=== PATIENT | female | born 1990 | race Caucasian/White ===

== ENCOUNTER 2025-02-12 09:00 | Emergency (ER) | payer BC, SELFPAY ==
[2025-02-12 09:04] VITALS: BP 116/64
--- NOTE | 2025-02-12 09:48 | ED.GENMED ---
History of Present Illness
General
Chief Complaint: Urinary Symptoms
Time Seen by Provider: 02/12/25 09:27
History of Present Illness
History of Present Illness:
34-year-old female presents to the emergency department for evaluation of urinary retention. She states over the past several days she feels that she cannot empty her bladder at night but it seems to improve throughout the day. Today she awoke
with intense bladder discomfort and was unable to void. She is currently 12 weeks gestational age, third . She notes that this did happen in mild fashion in her first but she never required emergency department visit or
catheterization for it. No issues like this with her second . Denies hematuria or vaginal discharge.
Past History
Social History
Personal: Single
Living: with family
Review of Systems
Review of Systems
Allergies reviewed?: Yes
All Other Systems: ROS reviewed and negative except as documented in HPI and ROS
Phy Exam
Physical Exam
Physical Exam:
GEN: Well appearing, NAD, WDWN
HEENT: Oral mucosa moist, no scleral icterus
Cardiac: Regular rate
Lung: No respiratory distress, no tachypnea
Abdomen: Suprapubic distention and tenderness noted
: Exam performed with THANH Georges at bedside, no gross anatomic abnormalities, no cystocele
MSK: No gross deformity or injuries
Skin: Good color, no pallor or jaundice, no rashes
Neuro: AO x3, moves all extremities freely
Psych: Calm, cooperative
Course
Orders/Labs/Results
Orders:
Orders
02/12/25 11:11
Urinalysis Reflex To Culture Urgent
Date Specimen was Collected: 02/12/25
Time Specimen was Collected: 11:10
Vital Signs
Initial and Last Documented VS:
Initial Vital Signs
Temp Pulse Resp BP Pulse Ox
97.9 F 92 20 116/64 99
02/12/25 09:04 02/12/25 09:04 02/12/25 09:04 02/12/25 09:04 02/12/25 09:04
Last Documented Vital Signs
Temp Pulse Resp BP Pulse Ox
97.9 F 71 17 118/78 99
02/12/25 09:04 02/12/25 12:37 02/12/25 12:37 02/12/25 12:37 02/12/25 12:37
MDM/Problems Addressed
MDM/Problems Addressed:
ED nursing staff and myself were unable to successfully place a Gallagher catheter, urology was consulted and a 14 [place] Gallagher was placed. Urology recommendation is to maintain the Gallagher for 2 days and follow-up in the office for education on self
catheterization. Urinalysis negative for UTI
*Pulse Oximetry
SaO2: 99
Oxygen Mode of Delivery: Room air
Patient hypoxic: no
*Critical Care Note
Total Time (30-74mins, 75-104mins- exclusive of procedures): Not Applicable
ED Attending Note
-
Portions of this chart may have been created with voice recognition software.� Occasional wrong word or��sound alike� substitutions may have occurred due to the inherent limitations of voice recognition software.
Discharge Plan
Departure
Patient Disposition: Home (Routine Discharge)
Date of Disposition: 02/12/25
Time of Disposition: 12:11
Patient with high blood pressure during this ER visit?: No
Discharge Problem:
Acute urinary retention
Instructions: Urinary retention (DC), How to care for a urinary catheter
Prescriptions:
No Action
28-800 mg-mcg Tablet
1 tab PO HS
acetaminophen [acetaminophen] 325 mg tablet
650 mg PO Q4HPRN PRN (Reason: mild pain) Qty: 1 0RF
ibuprofen 200 mg tablet
400 - 600 mg PO Q6HPRN PRN (Reason: moderate pain) Qty: 1 0RF
oxycodone 5 mg tablet
5 mg PO Q4HPRN PRN (Reason: breakthrough/severe pain) Qty: 10 0RF
Referrals:
Carmenza Medina CRNP [Specified Professional Personl, Urology]
Referral Note: call to schedule appt Tue or : Gallagher removal, CIC instruction
Rambo Rdz MD [Active, Urology] - Follow up in 2-3 days
Interventions
Interventions:
*Risk Screen - Suicide Last Done: 02/12/25 09:04
*General Assessment Last Done: 02/12/25 09:04
*Neglect/Abuse Screening Last Done: 02/12/25 09:04
*ED COVID-19 Vaccine History Last Done: 02/12/25 09:43
*Nursing Disposition Last Done: 02/12/25 12:38
ED-Female Genitourinary Assessment Last Done: 02/12/25 09:43
Discharge Date and Time
Discharge Date/Time: 02/12/25 12:38
Print Language: BRAZILIAN
[2025-02-12 11:28] LABS: Urine Character Clear (Clear)
--- NOTE | 2025-02-12 12:13 | CONS.URO ---
Consultation
-
Date/Time Consultation Performed: 02/12/2025 1140
Requesting Provider: ED
Performing Provider: Kendell
Reason for Consultation: AUR
Medical History
History of Present Illness
34 yo 12-week female presented to ED unable to void.
EDstaff were unable to pass catheter.
Past Medical History
Past Medical History: None
Allergies/Home Medications
Allergies
Allergy/AdvReac Type Severity Reaction Status Date / Time
amoxicillin (From Augmentin) Allergy Rash Verified 02/12/25 09:09
clavulanic acid (From Allergy Rash Verified 02/12/25 09:09
Augmentin)
Home Medications
�Medication �Instructions �Recorded �Confirmed �Type
vits no.133-ferrous 1 tab PO HS 05/02/23 05/02/23 History
fumarate 28 mg-folic acid 800 mcg
tablet ()
acetaminophen 325 mg tablet 650 mg (2 x 325 mg) PO Q4HPRN PRN 05/03/23 Rx
mild pain #1 tab
ibuprofen 200 mg tablet 400 - 600 mg (2 - 3 x 200 mg) PO 05/03/23 Rx
Q6HPRN PRN moderate pain #1 tab
oxycodone 5 mg tablet 5 mg PO Q4HPRN PRN 05/03/23 Rx
breakthrough/severe pain #10 tabs
Physical Exam
Vital Signs
Vital Signs
Temp Pulse Resp BP Pulse Ox
97.9 F 92 20 116/64 99
02/12/25 09:04 02/12/25 09:04 02/12/25 09:04 02/12/25 09:04 02/12/25 09:48
Physical Exam
adult female
oral consent to place Gallagher with RN in attendance.
16 fr Gallagher placed via partially retroverted urethral meatus.
Assessment / Plan
-
AUR
home with Gallagher
f/u with Mauro REECE this week for Gallagher removal, CIC instruction
[2025-02-12 12:37] VITALS: BP 118/78
== END 2025-02-12 12:38 | disposition home or self-care (01) ==
LOC: EMR 09:00
PROVIDERS: Physician Assistant; EMERGENCY PHYSICIAN Emergency Medicine
DX: O99.891 Other specified diseases and conditions complicating pregnancy (principal); R33.9 Retention of urine, unspecified; O09.521 Supervision of elderly multigravida, first trimester; Z3A.12 12 weeks gestation of pregnancy
CPT/HCPCS: 51702; 99283; 81003

== ENCOUNTER → 2025-06-12 07:43 | Outpatient (REF) | payer BC, SELFPAY | LOC: PNTC 07:43 | PROVIDERS: ATTENDING PHYSICIAN Obstetrics & Gynecology | DX: O09.523 Supervision of elderly multigravida, third trimester (principal) | CPT/HCPCS: 36415; 86850; 86900; 86901; 96372; J2790 ==